=== PATIENT | female | born 1960 | race Caucasian/White ===

== ENCOUNTER 2017-05-07 16:28 | Outpatient (CLI) | payer OTHER | END 2017-05-07 16:29 | disposition home or self-care (01) | DX: M19.071 Primary osteoarthritis, right ankle and foot (principal); M20.11 Hallux valgus (acquired), right foot ==

== ENCOUNTER 2017-05-28 09:58 | Outpatient (CLI) | payer OTHER ==
--- NOTE | 2017-05-29 17:48 | Mammography Report ---
DIGITAL SCREENING MAMMOGRAM: 05/28/2017 CLINICAL INDICATION: A 57-year-old with history of reduction mammoplasty for screening. COMPARISON: 11/2014, 01/2011, 02/2008. TECHNIQUE: Routine CC and MLO projections were obtained of the breasts. FINDINGS: The breasts demonstrate scattered fibroglandular densities bilaterally. Coarse and puncta te, typically benign calcifications are present. Postoperative changes are stable. No suspicious ma sses, clustered microcalcifications, or regions of architectural distortion are identified. IMPRESSION: BENIGN FINDINGS. RECOMMENDATION: Routine annual screening unless otherwise clinically indicated. BI-RADS category 2, benign findings. STANDARD QUALIFYING STATEMENTS 1. This examination was reviewed with the aid of Computer-Aided Detection (CAD). 2. A negative or benign imaging report should not delay biopsy if clinically suspicious findings are present. Consider surgical consultation if warranted. More than 5% of cancers are not identified by i maging. 3. Dense breasts may obscure an underlying neoplasm. JOB #: [id number] EXT JOB #:[id number]
== END 2017-05-28 09:59 | disposition home or self-care (01) ==
LOC: DI 09:58
PROVIDERS: ATTEND Nurse Practitioner Family
DX: Z12.31 Encounter for screening mammogram for malignant neoplasm of breast (principal)
CPT/HCPCS: 77067

== ENCOUNTER 2017-10-22 16:41 | Outpatient (CLI) | payer OTHER ==
--- NOTE | 2017-10-23 11:06 | XRAY Report ---
STANDING FRONTAL LEFT KNEE: 10/22/2017 CLINICAL INDICATION: Pain. FINDINGS: As requested, standing frontal view of the left knee was performed. Minimal osteoarthritis is seen, with tiny osteophytes. No gross fracture is seen on this single frontal view. IMPRESSION: MINIMAL OSTEOARTHRITIS. BRANDON/ TD: 10/23/2017 12:05 [facility]
== END 2017-10-22 16:42 | disposition home or self-care (01) ==
LOC: DI 16:41
PROVIDERS: ATTEND Nurse Practitioner Family
DX: M25.562 Pain in left knee (principal)
CPT/HCPCS: 73565

== ENCOUNTER 2017-12-22 12:30 | Outpatient (CLI) | payer OTHER ==
--- NOTE | 2017-12-22 20:07 | MRI Report ---
EXAM: LEFT KNEE MRI WITHOUT CONTRAST EXAM DATE: 12/22/2017 01:19 PM. CLINICAL HISTORY: Left knee effusion and pain. COMPARISON: None. TECHNIQUE: Multiplanar, multisequence T1-weighted and fluid-sensitive sequences of the knee without c ontrast. Other: None. FINDINGS: Bones: No fractures or subluxations. No marrow edema. No bone lesions. Articular Cartilage: There is a focal area of grade 3-4 chondromalacia central weightbearing aspect o f the lateral femoral condyle. Series 801 image 15. Medial Meniscus: The medial meniscus is intact. Lateral Meniscus: Superior surface full-thickness tear of the midbody of the lateral meniscus. Series 801 image 16. Cruciate Ligaments: The anterior and posterior cruciate ligaments are intact. Collateral Ligaments: The medial collateral and lateral collateral ligamentous structures are intact. Tendons: The quadriceps, patellar, semimembranosus, and popliteus tendons are unremarkable. Musculature: No edema or fatty atrophy. Other: Moderate-sized joint effusion. Small popliteal cyst. 2 loose bodies seen in the anterior aspec t of the lateral compartment. Series 401 image 9. These are about 4 mm each. Small loose body also s een in the medial aspect of the suprapatellar bursa. Series 401 image 15. The medial and lateral reti nacula are intact. Small amount of edema in Hoffa's fat pad. IMPRESSION: 1. 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 2 sma ll loose bodies seen in the anterior aspect of the lateral compartment. Another small loose body seen in the medial aspect of the suprapatellar bursa. 2. Full-thickness superior surface tear midbody lateral meniscus without displaced fragment. 3. Retinacula appear normal. Subcutaneous soft tissues appear unremarkable. Small amount of edema in Hoffa's fat pad. [facility] MUSCULOSKELETAL RADIOLOGY SECTION Referring Provider Line: [phone] SITE ID: [id number]
== END 2017-12-22 12:31 | disposition home or self-care (01) ==
LOC: DI 12:30
PROVIDERS: ATTEND Orthopaedic Surgery
DX: M94.262 Chondromalacia, left knee (principal); M23.42 Loose body in knee, left knee; S83.282A Other tear of lateral meniscus, current injury, left knee, initial encounter